=== PATIENT | male | born 1945 | race Caucasian/White ===

== ENCOUNTER 2024-05-02 11:16 | Inpatient (IN) ==
[2024-05-02 11:58] LABS: ABS Basophils 0.1 10^3/uL (0.0-0.1); ABS Eosinophils 0.1 10^3/uL (0.0-0.5); ABS Lymphocytes 1.8 10^3/uL (1.0-4.8); ABS Monocytes 1.2 10^3/uL (0.0-1.1); ABS Neutrophils 7.8 10^3/uL (1.5-7.6); Hematocrit 39.7 % (38-53); INR 1.11 (0.83-1.13); Lymphocyte % 15.9 %; Mean Corpuscular Hemoglobin 29.7 pg (27-33); Mean Corpuscular Hgb Conc 32.8 g/dL (31-36); Mean Corpuscular Volume 90.6 fL (80-97); Mean Platelet Volume 7.8 fL (7.5-11.2); Platelet Count 165 10^3/uL (150-450); Red Blood Count 4.38 10^6/uL (4.06-5.63); Red Cell Distribution Width 14.4 % (12-17); White Blood Count 11.1 10^3/uL (3.6-10.2)
[2024-05-02] MEDS: Lactated Ringers 1000 ml BAG 1,000 ML IV ONE (12:09)
[2024-05-02 12:12] LABS: High Sens Troponin Baseline 22 pg/mL (<20)
[2024-05-02 12:19] LABS: ALT 30 U/L (7-52); Albumin 4.2 g/dL (3.2-5.2); Albumin/Globulin Ratio 1.8 (1-3); Alkaline Phosphatase 34 U/L (35-149); Anion Gap 11 mmol/L (2-16); Blood Urea Nitrogen 27 mg/dL (6-24); CO2 Carbon Dioxide 20 mmol/L (22-32); Calcium 9.3 mg/dL (8.6-10.3); Chloride 106 mmol/L (101-111); Creatinine, Serum 1.64 mg/dL (0.67-1.17); Globulin 2.3 g/dL (2-4); Glucose 123 mg/dL (70-100); Sodium 137 mmol/L (135-145); Total Bilirubin 0.9 mg/dL (0.2-1.0); Total Protein 6.5 g/dL (6.4-8.9); eGFR CKD-EPI 42.3 (>60)
[2024-05-02 13:11] LABS: Creatinine, Serum 1.67 mg/dL (0.67-1.17); Potassium Redraw 4.6 mmol/L (3.5-5.0); eGFR CKD-EPI 41.4 (>60)
[2024-05-02 13:31] LABS: Magnesium 1.9 mg/dL (1.9-2.7)
[2024-05-02] MEDS: Sulfur Hexaflouride MICROSPHR 25 MG VIAL IV ONE (13:45)
[2024-05-02] MEDS: Heparin DRIP 25,000 UNITS BAG 25,000 UNITS/250 ML BAG IV SCH (14:48)
[2024-05-02] MEDS: Heparin 5000 UNITS/ML 1 mL VIAL IV SCH (15:11)
[2024-05-02] MEDS: Magnesium Sulfate 2 gm BAG 2 GM/50 ML BAG IVPB ONE (15:42)
[2024-05-02 18:10] LABS: T4, Total 6.34 mcg/dL (6.09-12.23)
[2024-05-02 18:16] LABS: TSH Ultra Thyroid Stim Horm 4.52 mcIU/mL (0.34-5.60)
[2024-05-02] MEDS ORDERED: ceFAZolin 2 GM PREMIX 2 GM/50 ML BAG IVPB ONE (19:00)
[2024-05-03] MEDS: NS 0.9% 1000 ml BAG 1,000 ML IV SCH (01:35)
[2024-05-03 05:22] LABS: Calcium 9.2 mg/dL (8.6-10.3); Creatinine, Serum 1.72 mg/dL (0.67-1.17); Potassium 4.2 mmol/L (3.5-5.0); eGFR CKD-EPI 39.9 (>60)
[2024-05-03 06:12] LABS: ABS Eosinophils 0.1 10^3/uL (0.0-0.5); ABS Lymphocytes 1.5 10^3/uL (1.0-4.8); ABS Monocytes 1.1 10^3/uL (0.0-1.1); ABS Neutrophils 7.2 10^3/uL (1.5-7.6); ABS Nucleated RBC 0.01 10^3/ul; Eosinophil % 0.5 %; Hematocrit 37.9 % (38-53); Hemoglobin 12.5 g/dL (13.2-16.3); Lymphocyte % 15.4 %; Mean Corpuscular Hemoglobin 29.9 pg (27-33); Mean Corpuscular Volume 90.6 fL (80-97); Mean Platelet Volume 8.4 fL (7.5-11.2); Nucleated Red Blood Cells % 0.1 %/100WBC (0.0-0.8); Platelet Count 154 10^3/uL (150-450); Red Blood Count 4.18 10^6/uL (4.06-5.63); Red Cell Distribution Width 14.8 % (12-17)
[2024-05-03] MEDS ORDERED: Lidocaine 1% VIAL 10 MG/ML 30 ML VIAL ONE (07:45)
[2024-05-03] MEDS ORDERED: Midazolam 5 mg/5 ml VIAL 1 mg/ml 5 ml VIAL (5 mg) ONE ×2 (07:47→09:35)
[2024-05-03] MEDS ORDERED: Iohexol 300 (CONTRAST) 10 ML SDV ONE (07:47)
[2024-05-03] MEDS ORDERED: fentaNYL 100 mcg/2 ml 50 MCG/ML VIAL ONE (07:47)
[2024-05-03] MEDS ORDERED: Flumazenil 0.5 mg/5 ml 0.1 MG/ML 5 ml VIAL ONE (07:49)
[2024-05-03] MEDS ORDERED: Naloxone 0.4 mg VIAL 0.4 mg/ml 1 ml VIAL ONE (07:50)
[2024-05-03] MEDS: Haloperidol 5 mg/ml SDV IV/IM 5 MG/ML AMP IV SLOW PU ONE (09:55)
[2024-05-03] MEDS: LORazepam 2 mg VIAL 1 ml ONE (10:47)
[2024-05-03] MEDS: ceFAZolin 2 GM PREMIX 2 GM/50 ML BAG IVPB ONE (11:05)
[2024-05-03] MEDS: Haloperidol 5 mg/ml SDV IV/IM 5 MG/ML AMP ONE (11:07)
[2024-05-03] MEDS: Furosemide 40 mg/4 ml IV VIAL IV ONE (16:25)
[2024-05-03] MEDS: ceFAZolin VIAL 1 GM in NS 0.9% 50 ML 50 ML IVPB SCH (16:25)
[2024-05-03] MEDS ORDERED: PTO:Bimatoprost 0.01% OPHTH (NF) 2.5 ML BTL BOTH EYES SCH (21:19)
[2024-05-03] MEDS ORDERED: PTO:Brimonidine/Timolol 0.2%/0.5% OPTH(NF) SOL 5 ML BOTH EYES SCH (21:32)
[2024-05-03] MEDS: Latanoprost 0.005% 2.5 ml BTL BOTH EYES SCH (22:00)
[2024-05-03] MEDS: CMC:Brimonidine/Timolol 0.2%/0.5% OPTH(NF) SOL 5 ML BOTH EYES SCH (22:00)
[2024-05-03] MEDS: PTO:Brimonidine/Timolol 0.2%/0.5% OPTH(NF) SOL 5 ML BOTH EYES SCH (22:05)
[2024-05-03] MEDS: PTO:Bimatoprost 0.01% OPHTH (NF) 2.5 ML BTL BOTH EYES SCH (22:06)
[2024-05-04 04:53] LABS: ABS Basophils 0.1 10^3/uL (0.0-0.1); ABS Eosinophils 0.1 10^3/uL (0.0-0.5); ABS Lymphocytes 1.5 10^3/uL (1.0-4.8); ABS Monocytes 1.4 10^3/uL (0.0-1.1); ABS Neutrophils 8.3 10^3/uL (1.5-7.6); Eosinophil % 0.6 %; Hematocrit 38.2 % (38-53); Lymphocyte % 13.6 %; Mean Corpuscular Hemoglobin 30.3 pg (27-33); Mean Corpuscular Hgb Conc 33.9 g/dL (31-36); Mean Corpuscular Volume 89.5 fL (80-97); Mean Platelet Volume 7.9 fL (7.5-11.2); Platelet Count 143 10^3/uL (150-450); Red Blood Count 4.27 10^6/uL (4.06-5.63); Red Cell Distribution Width 14.3 % (12-17); White Blood Count 11.3 10^3/uL (3.6-10.2)
[2024-05-04 05:31] LABS: Calcium 9.5 mg/dL (8.6-10.3); Creatinine, Serum 1.82 mg/dL (0.67-1.17); Magnesium 1.9 mg/dL (1.9-2.7); Potassium 3.5 mmol/L (3.5-5.0); eGFR CKD-EPI 37.3 (>60)
[2024-05-04 13:51] VITALS: BP 141/75
[2024-05-06 18:07] LABS: Anaplasma phagocytophilum Negative (Negative); B. miyamotoi PCR, B Negative (Negative); Babesia divergens/MO-1 Negative (Negative); Babesia ducani Negative (Negative); Ehrlichia chaffeensis Negative (Negative); Ehrlichia ewingii/canis Negative (Negative); Ehrlichia muris eauclairensis Negative (Negative)
[2024-05-06 19:46] LABS: IgG Immunoblot Negative (Negative); IgM Immunoblot Negative (Negative)
== END 2024-05-04 13:00 | disposition home or self-care (01) | DRG 243 ==
LOC: ED 11:16 → SUATTDRO 12:49 → ICU 12:49
PROVIDERS: ADMIT Student in an Organized Health Care Education/Training Program; ATTEND Internal Medicine